=== PATIENT | male | born 1960 | race Caucasian/White ===

== ENCOUNTER 2017-12-12 12:05 | Emergency (ER) | payer OTHER ==
[2017-12-12] MEDS ORDERED: BACIGUENT PACKET TP ONE (12:13)
[2017-12-12] MEDS ORDERED: Adacel Vial IM ONE ×2 (12:13→12:25)
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
[2017-12-12 12:22] VITALS: O2SAT 98
[2017-12-12] MEDS ORDERED: BACIGUENT PACKET ONE (12:25)
[2017-12-12 12:54] VITALS: BP 159/101; PULSE 88
== END 2017-12-12 12:50 | disposition home or self-care (01) ==
LOC: ED 12:05
DX: S61.210A Laceration without foreign body of right index finger without damage to nail, initial encounter (principal); W26.0XXA Contact with knife, initial encounter
CPT/HCPCS: 90471; 90715; 99283; A9270-GY

== ENCOUNTER 2024-03-07 08:27 | Emergency (ER) | payer OTHER ==
[2024-03-07 08:33] VITALS: TEMP 98.2
[2024-03-07] MEDS ORDERED: BABY ASPIRIN 81 MG CHEW ONE (08:50)
[2024-03-07] MEDS: BABY ASPIRIN 81 MG CHEW PO ONE (08:51)
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
[2024-03-07 09:02] LABS: Absolute Neutrophil Ct (ANC) 3.67 x10^3/uL (1.78-5.38); BASOPHIL % 0.8 % (0.2-1.2); Basophil (Absolute #) 0.05 x10^3/uL (0.01-0.08); Eosinophil % 1.7 % (0.8-7.0); Eosinophil (Absolute #) 0.11 x10^3/uL (0.04-0.54); Hematocrit 37.1 % (40.1-51.0); Hemoglobin 12.7 g/dL (13.7-17.5); IMMATURE GRAN # 0.01 x10^3u/L (0.001-0.031); IMMATURE GRAN % 0.2 % (0.001-0.429); Lymphocyte (Absolute #) 1.93 x10^3/uL (1.32-3.57); Lymphocytes % 30.4 % (21.8-53.1); Mean Cell Volume 97.9 fL (79.0-92.2); Mean Corpuscular Hemoglobin 33.5 pg (25.7-32.2); Mean Corpuscular Hgb Concent. 34.2 g/dL (32.3-36.5); Mean Platelet Volume 10.6 fL (9.4-12.4); Monocyte (Absolute #) 0.58 x10^3/uL (0.30-0.82); Monocytes % 9.1 % (5.3-12.2); Neutrophil % 57.8 % (34.0-67.9); Platelet Count 251 x10^3/uL (163-337); Red Blood Count 3.79 x10^6/uL (4.63-6.08); Red Cell Distribution Width 12.3 % (11.6-14.4); White Blood Count 6.4 x10^3/uL (4.23-9.07)
--- NOTE | 2024-03-07 09:11 | XRAY ---
Indication: Dyspnea. Comparison: December 27, 2013 Portable chest again hyperinflated and clear. Heart and mediastinal structures within normal limits. Bony thorax intact with now mild degenerative changes. Impression: Continued nonacute hyperinflated chest.
[2024-03-07 09:16] LABS: ALBUMIN 3.3 g/dL (3.5-5.0); ANION GAP 8.7 MEQ/L (5-15); BILIRUBIN,TOTAL 0.2 mg/dL (0.2-1.3); Calcium 8.8 mg/dL (8.4-10.2); Creatinine 1 0.77 mg/dL (0.66-1.25); EST GLOMERULAR FILTRATION RATE 101.2 ML/MIN; Potassium 3.8 mmol/L (3.5-5.1); Total Protein 6.1 g/dL (6.3-8.2)
[2024-03-07 09:23] VITALS: RESP 19
[2024-03-07 12:53] VITALS: O2SAT 99
[2024-03-07 13:04] VITALS: BP 164/98; PULSE 68
== END 2024-03-07 13:12 | disposition home or self-care (01) ==
LOC: ED 08:27
DX: R07.9 Chest pain, unspecified (principal); R06.02 Shortness of breath; I10 Essential (primary) hypertension; Z72.0 Tobacco use
CPT/HCPCS: 36000; 36415; 71045; 80053; 84484; 85025; 85379; 93005; 93041; 99284; A9270-GY